=== PATIENT | female | born 1960 | race Caucasian/White ===

== ENCOUNTER 2021-12-16 18:02 | Emergency (ER) | payer MEDICARE, MEDICAID ==
[~2021-12-16] VITALS: Ht 162.6 cm; Wt 64.0 kg
[2021-12-16 18:19] VITALS: BP 165/112
[2021-12-16 18:52] LABS: HEMATOCRIT. 40.3 % (36.0-48.0); HEMOGLOBIN. 13.8 g/dL (12.0-16.0); MEAN CORPUSCULAR HEMOGLOBIN 29.6 pg (28.0-32.0); MEAN CORPUSCULAR VOLUME 86.7 fL (81.0-99.0); MEAN PLATELET VOLUME 8.9 fl (7.4-10.4); PLATELET 200 x1000/uL (130-400); RED BLOOD CELL COUNT 4.64 mill/uL (4.2-5.4)
[2021-12-16 18:57] LABS: CHLORIDE 109 mEq/L (98-107)
[2021-12-16 19:02] LABS: PROTHROMBIN TIME 10.5 sec (9.6-11.0)
[2021-12-16 19:11] LABS: PLATELET ESTIMATE NORMAL
[2021-12-16 21:57] LABS: CLARITY URINE CLEAR (CLEAR); COLOR URINE YELLOW (YELLOW); KETONES URINE NEGATIVE (NEGATIVE); LEUKOCYTE ESTERASE URINE NEGATIVE (NEGATIVE); NITRITE URINE NEGATIVE (NEGATIVE); OCCULT BLOOD URINE NEGATIVE (NEGATIVE); PH URINE 7.5 (4.5-8.0); PROTEIN URINE NEGATIVE (NEGATIVE); SPECIFIC GRAVITY URINE 1.003 (1.005-1.030); UROBILINOGEN URINE 0.2 E.U./dL (0.2-1.0)
== END 2021-12-16 22:59 | disposition home or self-care (01) ==
LOC: ER 18:02
DX: R04.0 Epistaxis (principal); D72.829 Elevated white blood cell count, unspecified; M19.90 Unspecified osteoarthritis, unspecified site; Z85.6 Personal history of leukemia; Z90.710 Acquired absence of both cervix and uterus
CPT/HCPCS: 36415; 71045; 80053; 81003; 85025; 99284

== ENCOUNTER 2022-09-28 11:51 | Emergency (ER) | payer MEDICARE, MEDICAID ==
[~2022-09-28] VITALS: Ht 165.1 cm; Wt 60.0 kg
[2022-09-28] MEDS ORDERED: TETRACAINE 0.5% OPHTH DROPS 4ML BOTHEYE ONE (13:00)
[2022-09-28] MEDS ORDERED: FLUORESCEIN SODIUM 1MG/STRIP BOTHEYE ONE (13:00)
[2022-09-28] MEDS ORDERED: IBUPROFEN 400MG TABLET PO ONE (13:30)
[2022-09-28 14:15] LABS: BASOPHILS % 0.5 % (0.0-2.0); EOSINOPHILS % 0.7 % (0.0-5.0); HEMOGLOBIN. 13.1 g/dL (12.0-16.0); LYMPHOCYTES % 54.4 % (20.0-50.0); MEAN CORPUSCULAR HEMOGLOBIN 29.5 pg (28.0-32.0); MEAN CORPUSCULAR VOLUME 89.6 fL (81.0-99.0); MEAN PLATELET VOLUME 8.5 fl (7.4-10.4); MONOCYTES % 3.1 % (2.0-8.0); NEUTROPHILS % 41.3 % (40.0-76.0); PLATELET 247 x1000/uL (130-400); RED BLOOD CELL COUNT 4.46 mill/uL (4.2-5.4); RED CELL DISTRIBUTION WIDTH 12.8 % (11.6-14.6)
[2022-09-28 14:19] LABS: CHLORIDE 108 mEq/L (98-107)
[2022-09-28] MEDS ORDERED: IBUP-2028 MT (15:10)
[2022-09-28] MEDS ORDERED: OFLO5DRO3 LEFTEYE (15:10)
[2022-09-28 15:35] VITALS: BP 139/84
== END 2022-09-28 15:36 | disposition home or self-care (01) ==
LOC: ER 11:51
DX: H57.12 Ocular pain, left eye (principal); R51.9 Headache, unspecified; M79.10 Myalgia, unspecified site; Z90.710 Acquired absence of both cervix and uterus
CPT/HCPCS: 36415; 80048; 85025; 85651; 99284

== ENCOUNTER 2025-05-09 11:03 | Emergency (ER) | payer MEDICARE, MEDICAID ==
[~2025-05-09] VITALS: Ht 157.5 cm; Wt 75.0 kg
[~2025-05-09 11:03] MED LIST: IBUP-2028 MT; OCUFLX LEFTEYE
[2025-05-09 11:12] VITALS: O2SAT 99
[2025-05-09] MEDS: CYCLOBENZAPRINE 10MG TABLET PO ONE (12:07)
[2025-05-09] MEDS: ACETAMINOPHEN 325MG TABLET PO ONE (12:08)
[2025-05-09] MEDS: LIDOCAINE 5% PATCH TOP SCH (12:09)
[2025-05-09] MEDS: KETOROLAC 15MG/ML VIAL IM ONE (12:09)
[2025-05-09] MEDS ORDERED: LIDO-53 TP (12:31)
[2025-05-09] MEDS ORDERED: CYCL10TA21 MT (12:31)
[2025-05-09] MEDS ORDERED: ACET-2708 MT (12:31)
[2025-05-09 12:42] VITALS: BP 150/88; PULSE 80; RESP 18; TEMP 37.1; O2SAT 99
== END 2025-05-09 12:50 | disposition home or self-care (01) ==
LOC: ER 11:03
DX: M47.816 Spondylosis without myelopathy or radiculopathy, lumbar region (principal); Z90.710 Acquired absence of both cervix and uterus; Z79.899 Other long term (current) drug therapy
CPT/HCPCS: 99284; 72100; J1885